=== PATIENT | male | born 1970 | race Caucasian/White ===

== ENCOUNTER → 2019-07-06 16:19 | Outpatient (CLI) | payer BC, SELFPAY ==
[2019-07-06 16:23] LABS: Bacteria 0 SEEN /hpf (None Seen); Mucous, Urine 0 SEEN /hpf (<or=2+); Red Blood Cells-Urine 0 SEEN /hpf (0-5); Squamous Epithelial Cells - UA 0 SEEN /hpf (0-5); White Blood Cells 0 SEEN /hpf (0-5)
[2019-07-06 17:23] LABS: Absolute Lymphocyte Count 1.68 X10^3/uL (0.83-4.51); Absolute Neutrophil Count 2.9 X10^3/uL (2.0-7.7); Basophil# 0.02 X10^3/uL; Basophil% 0.4 % (0-1); Eosinophil# 0.13 X10^3/uL; Eosinophils% 2.5 % (0-5); Hematocrit 43.8 % (40-54); Hemoglobin 13.9 g/dL (13.0-16.5); Lymphocyte # 1.68 X10^3/ul (4.0); Lymphocyte % 31.8 % (19-41); Mean Corp Hgb Conc 31.7 g/dL (32-36); Mean Corpuscular Hgb 27.8 pg (27.0-32.0); Mean Corpuscular Volume 87.6 fL (80-94); Mean Platelet Vol. 9.9 fl (6.2-12.0); Monocyte# 0.51 X10^3/uL; Monocyte% 9.6 % (0-10); NRBC Flagged by Analyzer 0 % (0-5); Neutrophil # 2.94 X10^3/uL (2.7-7.7); Neutrophil % 55.5 % (47-70); Platelet Count 207 K/mm3 (150-450); RBC Distribution Width CV 11.9 % (11.6-14.6); RBC Distribution Width SD 38.4 fl (35.1-43.9); White Blood Count 5.3 K/mm3 (4.4-11.0)
[2019-07-06 17:35] LABS: Erythrocyte Sedimentation Rate 15 mm/hr (0-20)
[2019-07-06 17:45] LABS: CPK Total, Creatine Kinase 174 U/L (39-308); CRP < 2.90 mg/L (0.0-3.0); PSA,Total - Annual Screen 1.15 ng/mL (0.00-4.00)
[2019-07-06 18:59] LABS: Color, Urine Yellow (Yellow); Glucose, Dipstick Normal (Normal); Ketone-Dipstick Negative (Negative); Leukocyte Esterase-Dipstick Negative /ul (Negative); Nitrite-Dipstick Negative (Negative); Occult Blood-Urine Negative /ul (Negative); Protein-Dipstick Negative (Negative); Urine Bilirubin Dipstick Negative (Negative); Urine Clarity Clear (Clear); Urine Urobilinogen Normal (Normal)
[2019-07-08 20:55] LABS: Aldolase 4.8 U/L (3.3-10.3)
== END ==
PROVIDERS: Family Provider Family Medicine; PCP Family Medicine; Referring Provider Family Medicine; Visit Provider Family Medicine
DX: R10.9 Unspecified abdominal pain (principal)
CPT/HCPCS: 36415; 81001; 82085; 82550; 84153; 85025; 85652; 86140; 87086; G0103

== ENCOUNTER → 2019-07-26 07:11 | Outpatient (CLI) | payer BC, SELFPAY ==
--- NOTE | 2019-07-26 07:17 | MRI_ITS ---
STUDY: MRI BILATERAL HIPS T PELVIS REASON FOR EXAM: Groin pain for 5-6 months, no specific injury. TECHNIQUE: Standardized fat and water weighted pulse sequences were obtained in all 3 orthogonal planes. COMPARISON: None. FINDINGS: RIGHT HIP Normal hip joint without articular joint space narrowing. Normal right acetabulum. Normal right labrum. Normal right femoral head. Normal right femoral neck and intratrochanteric region. Normal right gluteus minimus, medius and iliopsoas tendons and distal insertions. There is bilateral parasymphyseal bone edema (inversion recovery coronal images 20-23), greater on the right than on the left, consistent with osteitis pubis. Normal right ischial tuberosity. Normal origin of the right hamstring tendons. Normal visualized right iliac wing, sacroiliac joint, and sacral ala. Normal visualized soft tissue structures of the pelvis. LEFT HIP Normal left hip joint without articular joint space narrowing. There is a small subchondral cyst in the lateral left acetabulum (inversion recovery coronal image 14). Normal left labrum. Normal left femoral head. Normal left femoral neck and intratrochanteric region. Normal left gluteus minimus, medius and iliopsoas tendons and distal insertions. Normal left ischial tuberosity. Normal origin of the left hamstring tendons. Normal visualized left iliac wing, sacroiliac joint, and sacral ala. Normal visualized soft tissue structures of the pelvis. MRI/Pelvis (Routine) IMPRESSION: Osteitis pubis. Electronically Signed: Cristofer Cloud MD at 8:46 EST Tel , Service support ,
== END ==
PROVIDERS: Family Provider Family Medicine; PCP Family Medicine; Referring Provider Family Medicine; Visit Provider Family Medicine
DX: R10.2 Pelvic and perineal pain (principal)
CPT/HCPCS: 72195

== ENCOUNTER → 2020-01-25 09:44 | Outpatient (CLI) | payer BC, SELFPAY ==
--- NOTE | 2020-01-25 09:50 | MRI_ITS ---
STUDY: MRI LUMBAR SPINE WITHOUT CONTRAST REASON FOR EXAM: Male, 49 years old. back pain -- pain low pelvis into rt thigh x 1 year, NKI TECHNIQUE: Standardized fat and water weighted pulse sequences were obtained in the sagittal and axial planes. COMPARISON: None FINDINGS: T12-L1: Normal endplates. Normal disc height, hydration and morphology. Normal bilateral facet joints. Normal central canal and bilateral lateral recesses. Normal bilateral intervertebral neural foramina. Normal lumbar lordosis. There is no substantial scoliosis. Normal conus medullaris that terminates at T12-L1 L1-2: Mild degenerative endplate changes.. Narrowed disc space with desiccation of the disc and minor bulging annulus.. Normal bilateral facet joints. Normal central canal and bilateral lateral recesses. Mild bilateral neural foraminal encroachment. L2-3: Normal endplates. Normal disc height, hydration and minimal annular bulge. Normal bilateral facet joints. Normal central canal and bilateral lateral recesses. Normal bilateral intervertebral neural foramina. L3-4: Normal endplates. Normal disc height, hydration and minimal annular bulge. Normal bilateral facet joints. Normal central canal and bilateral lateral recesses. Normal bilateral intervertebral neural foramina. L4-5: Normal endplates. Normal disc height, desiccation and moderate annular bulge with small left posterolateral disc protrusion. Bilateral facet arthropathy.. Mild narrowing of the central canal. Normal bilateral recesses. Moderate to severe bilateral neuroforaminal stenosis L5-S1: Grade 1 spondylolisthesis Normal endplates. Normal disc height, desiccation and mild bulging disc osteophyte complex.. Facet arthropathy and thickening of ligamenta flava.. Normal central canal and bilateral lateral recesses. Severe bilateral neuroforaminal stenosis exaggerated by shortened pedicles Normal visualized sacral ala. There are 2 simple cysts in the right kidney Normal visualized paraspinous soft tissue structures. MRI/Spine Lumbar (Routine) IMPRESSION: Multilevel disc degeneration and spinal stenosis secondary to disc disease and bony hypertrophy most severe at L4-5 and L5-S1 exaggerated by shortened pedicles. Findings as above. Electronically Signed: Hiro Fulton MD at 16:09 EDT , Service support ,
== END ==
PROVIDERS: PCP Family Medicine; Referring Provider Family Medicine; Visit Provider Family Medicine
DX: M54.9 Dorsalgia, unspecified (principal)
CPT/HCPCS: 72148

== ENCOUNTER → 2021-07-22 11:51 | Outpatient (CLI) | payer BC, SELFPAY | PROVIDERS: PCP Family Medicine; Visit Provider Family Medicine | DX: U07.1 COVID-19 (principal) | CPT/HCPCS: 36415; 86769 ==

== ENCOUNTER → 2022-06-23 | Outpatient (CLI) | payer BC, SELFPAY ==
--- NOTE | 2022-06-23 07:24 | MRI_ITS ---
STUDY: MRI RIGHT KNEE REASON FOR EXAM: Male, 52 years old. Knee pain PT IS A RUNNER NO KNOWN INJURY, PAIN ACROSS PATELLA TECHNIQUE: Standardized fat and water weighted pulse sequences were obtained in all 3 orthogonal planes. COMPARISON: None. FINDINGS: Mild intrasubstance degenerative swelling and signal abnormality is present in the posterior horn of the medial meniscus without a discrete tear. A small loose body is directly posterior to the root insertion of the posterior horn. Normal anterior horn and body of the medial meniscus. There is diffuse, less than 50% thickness articular cartilage loss of the medial femorotibial compartment. Normal medial femoral condyle and tibial plateau. Normal medial collateral ligamentous complex (MCL). Normal distal semimembranosus, gracilis and semitendinosus tendons. Normal lateral meniscus. Normal hyaline cartilage of the lateral femorotibial compartment. Normal lateral femoral condyle and tibial plateau. Normal proximal tibiofibular articulation. Normal lateral collateral (fibular) ligament. Normal popliteus tendon. Normal biceps femoris tendon. There is edema with swelling and loss of definition of the of the ACL fascicles, producing a celery stick appearance, with preservation of the continuity of fibers, consistent with mucoid cystic degeneration. Normal posterior cruciate ligament (PCL). The patella slightly high riding indicating some degree of patella karen. There is also moderate to high-grade loss of cartilage across the medial and patellofemoral condyles, most pronounced in the inferior poles. Mild subchondral cystic changes and cortical spurring is also present. The trochlear groove cartilage demonstrates mild to moderate thinning and irregularity. A tiny joint effusion is present. The inferior aspect of the lateral patellar retinaculum is mildly to moderately thickened with some intrinsic signal abnormality. The medial patellar retinaculum is normal. Mild prepatellar subcutaneous edema is present as well. Normal quadriceps tendon. Normal patellar tendon. Normal Hoffa''s fat pad. MRI/Lower Ext Joint Only (Routine) IMPRESSION: 1. 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 Slightly high riding patella 3. Mild intrasubstance degenerative swelling and signal abnormality is present in the posterior horn of the medial meniscus without a discrete tear. A small loose body is directly posterior to the root insertion of the posterior horn. Normal anterior horn and body of the medial meniscus. Electronically Signed: Aime Sims MD at 10:05 EDT ,
== END | disposition home or self-care (01) ==
PROVIDERS: PCP Family Medicine; Referring Provider Orthopaedic Surgery; Visit Provider Orthopaedic Surgery
DX: M25.561 Pain in right knee (principal)
CPT/HCPCS: 73721

== ENCOUNTER → 2023-10-15 | Outpatient (CLI) | payer BC, SELFPAY ==
[2023-10-15 10:55] LABS: Anion Gap 2 (5-15); BUN 15 mg/dL (7-18); BUN/Creat Ratio 16.4 RATIO (10-20); Calcium,Total 9.8 mg/dL (8.5-10.1); Chloride 109 mmol/L (98-107); Cholesterol 212 mg/dL (200); Creatinine, Serum 0.92 mg/dL (0.70-1.30); EST Glomerular Filtration Rate 92 mL/min (>60); Est Glom Filt Rate - Afr Amer 111 mL/min (>60); Glucose 103 mg/dL (74-106); High Density Lipoprotein 60 mg/dL; PSA,Total - Annual Screen 1.87 ng/mL (0.00-4.00); Potassium 3.8 mmol/L (3.5-5.1); Sodium Level 139 mmol/L (136-145); Triglycerides 75 mg/dL; Very Low Density Lipoprotein 15 mg/dL (5-40)
== END | disposition home or self-care (01) ==
LOC: MFPLAB 09:15
PROVIDERS: PCP Family Medicine; Visit Provider Family Medicine
DX: Z12.5 Encounter for screening for malignant neoplasm of prostate (principal); Z13.220 Encounter for screening for lipoid disorders; Z13.1 Encounter for screening for diabetes mellitus
CPT/HCPCS: 36415; 80048; 80061; 84153; G0103

== ENCOUNTER 2024-03-19 08:03 | Emergency (ER) | payer BC, SELFPAY ==
[2024-03-19 08:03] VITALS: BP 139/95; PULSE 71; RESP 14; TEMP 36.1; O2SAT 100
[2024-03-19] MEDS: Fluorescein 1 MG STRIP 1 STRIP LEFT EYE (08:11)
[2024-03-19] MEDS: Tetracaine 0.5% Ophthalmic Bottle 1 DRP LEFT EYE (08:12)
[2024-03-19 08:14] VITALS: BMI 30.9
--- NOTE | 2024-03-19 08:20 | EDS_ITS ---
HPI History of Present Illness Chief Complaint: Eye Problem Detail of Chief Complaint: Right eye pain Informant: patient Narrative Narrative: Patient presents with right eye pain that started yesterday while he was using a brush hog. He was not wearing eye protection. He does wear contacts and had his contact and at the time. Initially started with just some vague discomfort in his right eye. He does not recall the time of anything going into his eye or foreign body sensation. He has since taken out his contact. Complains of some photophobia. He describes tearing. PFSH [facility] Home Medications ?Medication ?Instructions ?Recorded ?Last Taken ?Type calcium carbonate (Calcium 600) 600 mg PO DAILY 04/12/23 Unknown History cholecalciferol (vitamin D3) 10 10 mcg PO DAILY 04/12/23 Unknown History mcg/mL (400 unit/mL) oral drops glucosamine 750 af-sivgcwtulqe-ujv 1 tab PO DAILY 04/12/23 Unknown History no1 625 mg-C 30 mg-ruth 1 mg tablet (Cpvjiksohlg-Lttdhssouqy-EBO) multivitamin 1 tab PO DAILY 04/12/23 Unknown History aspirin 81 mg tablet,delayed 81 mg PO DAILY 03/19/24 Unknown History release Allergy/AdvReac Type Severity Reaction Status Date / Time No Known Allergies Allergy Verified 03/19/24 08:16 Surgical History H/O knee surgery ROS ROS ED Review of Systems ROS Unobtainable: other Constitutional Constitutional ED: Reports lethargy; Denies chills, fever(s), sweats or weight loss Eyes Eyes: Reports other Details: Right eye pain and tearing ; Denies blurry vision, change in vision or diplopia ENT ENT ED: Denies rhinorrhea or sore throat Cardiovascular Cardiovascular: Denies chest pain, orthopnea or racing heartbeat Respiratory/Chest Respiratory/Chest: Denies cough, dyspnea, dyspnea on exertion, orthopnea or sputum Gastrointestinal Gastrointestinal: Denies abdominal pain, diarrhea, nausea or vomiting Genitourinary Genitourinary ED: Denies dysuria, hematuria or urinary frequency Musculoskeletal Musculoskeletal: Denies arthralgias, back pain, myalgias or neck pain Integumentary Denies abscess, Abrasions or rash Neurologic Neurologic: Denies headache(s) or weakness Psychiatric Psychiatric: Denies anxiety, depression or suicidal thoughts Endocrine Endocrinology: Denies polydipsia, polyphagia or polyuria Hematologic/Lymphatic Hematologic/Lymphatic: Denies easy bleeding, easy bruising or lymphadenopathy Allergic/Immunologic Allergic/Immunologic ED: Denies mouth swelling, tongue swelling or urticaria EXAM Physical Exam Const Vital Signs: 03/19/24 08:03 Temperature 97 F L Temperature Source Temporal Pulse Rate 71 Respiratory Rate 14 Blood Pressure 139/95 H Blood Pressure Mean 109 Pulse Ox 100 Oxygen Delivery Method Room Air Positive well nourished and well developed General Appearance ED: well developed and NAD HEENT Reports TM's clear and moist mucous membranes HEENT Narrative: Right eye-patient does have some faint conjunctival erythema. Eyelids were everted and there were no foreign bodies noted. Patient had tetracaine ins tilled in the right eye. I stained the eye with fluorescein and noted a patchy corneal abrasion involving the upper half of the cornea. No foreign bodies within the cornea noted. No ulcerations noted. Extraocular muscle movement was normal and painless. Cornea otherwise clear. Pupils equal react light bilaterally normocephalic and atraumatic; Negative for trauma or tenderness Tympanic Membrane ED: Yes TM's clear Eyes PERRL and EOMs intact bilaterally General Eye ED: Negative for pale conjunctiva or scleral icterus Neck no lymphadenopathy, supple and no JVD General: Negative for tenderness Chest Wall inspection of chest normal and palpation of chest normal Chest: Negative for tenderness Resp normal respiratory effort and clear to auscultation bilaterally Effort and Inspection: Negative for respiratory distress or pain with movement Auscultation: Negative for rhonchi, wheezes or diminished lung sounds Cardio regular rate, regular rhythm, S1 normal heart sound, S2 normal heart sound and no murmurs Peripheral Pulses: pulses 2+ throughout GI normal to inspection, nondistended, normoactive bowel sounds, soft to palpation, non-tender, non-distended and no masses Back/Spine no CVA tenderness and no thoracic nor lumbar tenderness Extremity normal to inspection General Extremety ED: Negative for edema General Extremity: Negative for edema Neuro oriented x3, CN's II-XII intact bilaterally, no sensory deficits noted and gait normal Sensorium / Orientation: awake, alert, oriented to person, oriented to place and oriented to time Motor Exam: strength 5/5 throughout and strength abnormal Psych mental status grossly normal Skin no rashes or lesions noted and no wounds MDM MDM MDM Narrative Medical decision making narrative: Patient presents with right eye pain with history of contact use. Typically uses soft contacts. He is noted on exam to have a corneal abrasion. Patient is advised to not use his contacts. At this point he does not want to have his eye patch. Will dispense gentamicin ophthalmic drops. Will refer to ophthalmology for follow-up within next 2 to 3 days. Vies to return if worsening pain, decreased vision, or condition should worsen anyway Discharge Plan Triage Chief Complaint: Eye Problem ED Provider: Hunter Slater Dx/Rx/DC Orders Clinical Impression: Corneal abrasion of right eye due to contact lens Instructions: ED Corneal Injury, Contact Lens Prescriptions: No Action [id number]-C-ruth-bor [Inorqvud-Tjqug-YMF(with boron)] [id number] mg tablet 1 tab PO DAILY calcium carbonate [Calcium 600] 600 mg calcium (1,500 mg) tablet 600 mg PO DAILY cholecalciferol (vitamin D3) 10 mcg/mL (400 unit/mL) drops 10 mcg PO DAILY multivitamin Tablet 1 tab PO DAILY aspirin 81 mg tablet,delayed release (DR/EC) 81 mg PO DAILY Primary Care Provider: Alex Rossi Referrals: Alex Rossi MD [Primary Care Provider] - Ricky Solares MD [Med Staff - Active Staff] - 2 Days Print Language: Martiniquais Disposition Disposition: Home, Self Care
[2024-03-19] MEDS: Gentamicin Sulfate 1 OPTH.BTL 2 DRP RIGHT EYE (08:28)
== END 2024-03-19 08:41 | disposition home or self-care (01) ==
LOC: ED 08:31
PROVIDERS: Emergency Provider Emergency Medicine; PCP Family Medicine; Visit Provider Emergency Medicine
DX: S05.01XA Injury of conjunctiva and corneal abrasion without foreign body, right eye, initial encounter (principal); X58.XXXA Exposure to other specified factors, initial encounter
CPT/HCPCS: 99282

== ENCOUNTER 2025-02-15 09:48 | Outpatient (CLI) | payer BC, SELFPAY ==
[2025-02-16 14:08] LABS: Lyme Scn Total Ab w/Rflx Negative (Negative)
== END 2025-02-15 23:59 | disposition home or self-care (01) ==
LOC: MFPLAB 09:50
PROVIDERS: PCP Family Medicine
DX: S20.369A Insect bite (nonvenomous) of unspecified front wall of thorax, initial encounter (principal); W57.XXXA Bitten or stung by nonvenomous insect and other nonvenomous arthropods, initial encounter
CPT/HCPCS: 36415; 86618